=== PATIENT | female | born 2000 | race Asian ===

== ENCOUNTER 2023-11-18 19:47 | Inpatient (IN) ==
[2023-11-18] MEDS ORDERED: LIDOCAINE 1% LOCAL 20 ML VIAL INFIL PRN (20:41)
[2023-11-18] MEDS ORDERED: OXYTOCIN 30 UNITS/NSS 30 UNITS/500 ML BAG IV PRN ×2 (20:41)
[2023-11-18] MEDS ORDERED: PENICILLIN GK 6 MU in DEXTROSE 5% 250 ML IV STA (20:41)
--- NOTE | 2023-11-18 20:42 | Labor Progress Brief Note ---
Date of Service November 18, 2023 Subjective Patient presents for cruz bulb placement with planned IOL for tomorrow. 23yo @ 40w0d, complicated by GBS+ and low maternal weight gain but normal EFW. Rh negative also noted. Assessment & Plan (1) Supervision of normal IUP (intrauterine ) in multigravida: Plan: Begin IOL given ROM. Can use epidural prn, pitocin to begin now. PCN for GBS. Physical Exam Genitourinary: NSt reactive, toco irritable Cvx 2/50/-2/soft/ant During attempt to place cruz, AROM occurred for clear fluid. EFW 6-7lb Results & Data Vital Signs (Past 12 Hours) Vital Signs Temp Pulse Resp BP 11/18/23 20:26 97 H 138/83 11/18/23 20:09 98.2 F 18 11/18/23 20:03 18 11/18/23 20:03 98.2 F 18 11/18/23 20:00 129 H 134/85 Coding Level of Care Code None Diagnoses Supervision of normal IUP (intrauterine ) in multigravida Z34.80
[2023-11-18] MEDS: LACTATED RINGER'S 1,000 ML IV PRN (21:23)
[2023-11-18 21:44] LABS: Hemoglobin 11.5 g/dl (12.0-16.0); Mean Corpuscular Hemoglobin 30.9 pg (25.0-34.0); Mean Corpuscular Hgb Conc 34.8 g/dL (32.0-36.0); Mean Corpuscular Volume 88.7 fL (80.0-100.0); Mean Platelet Volume 11.8 fL (9.4-12.4); Platelet Count 174 K/uL (130-400); RDW Coefficient of Variation 12.8 % (11.5-14.5); RDW Standard Deviation 41.2 fL (36.4-46.3); Red Blood Count 3.72 M/uL (4.20-5.40)
[2023-11-19] MEDS: PENICILLIN GK 3 MU in DEXTROSE 5% 100 ML IV PRN ×3 (02:00→10:15)
[2023-11-19] MEDS ORDERED: fentaNYL citrate PF 100 MCG/2 ML VIAL ONE (05:09)
[2023-11-19] MEDS ORDERED: fentANYL 2 MCG/ML BUPIVacaine 0.125%-NSS 100ML BAG ONE (05:10)
[2023-11-19] MEDS ORDERED: BUPIVACAINE 0.25% PF 30 ML VIAL ONE (05:10)
[2023-11-19] MEDS ORDERED: SODIUM CHLORIDE 0.9% PF INJ 10 ML VIAL ONE (05:10)
[2023-11-19] MEDS ORDERED: LIDOCAINE 2%/EPINEPHRINE 1:200,000 20 ML PF ONE (05:10)
[2023-11-19] MEDS ORDERED: ePHEDrine sulfate 50 MG/ML AMP ONE (05:10)
[2023-11-19] MEDS ORDERED: diphenhydrAMINE 50 MG/ML VIAL IV PRN (05:23)
[2023-11-19] MEDS ORDERED: NALOXONE HCL 0.4 MG/1 ML VIAL/CARP IV PRN (05:23)
[2023-11-19] MEDS ORDERED: ePHEDrine sulfate 50 MG/ML AMP IV PRN (05:23)
[2023-11-19] MEDS ORDERED: ROPIVACAINE 0.5% PF 5 MG/ML 20 ML VIAL EPI PRN (05:23)
[2023-11-19] MEDS ORDERED: BUPIVACAINE 0.25% PF 30 ML VIAL EPI PRN (05:23)
[2023-11-19] MEDS ORDERED: LIDOCAINE 2% MPF LOCAL 5 ML VIAL EPI PRN (05:23)
[2023-11-19] MEDS ORDERED: fentaNYL citrate PF 100 MCG/2 ML VIAL EPI STA (05:23)
[2023-11-19] MEDS ORDERED: fentANYL 2 MCG/ML BUPIVacaine 0.125%-NSS 100ML BAG EPI PRN (05:23)
[2023-11-19] MEDS ORDERED: SODIUM CHLORIDE 0.9% PF INJ 10 ML VIAL EPI PRN (05:23)
[2023-11-19] MEDS ORDERED: LIDOCAINE 2%/EPINEPHRINE 1:200,000 20 ML PF EPI STA (05:23)
[2023-11-19] MEDS ORDERED: NALOXONE HCL 1 MG in SODIUM CHLORIDE 0.9% 1,000 ML IV PRN (05:23)
[2023-11-19] MEDS ORDERED: SODIUM CHLORIDE 0.9% PF INJ 10 ML VIAL EPI STA (05:23)
[2023-11-19] MEDS ORDERED: BUPIVACAINE 0.25% PF 30 ML VIAL EPI STA (05:23)
[2023-11-19] MEDS ORDERED: fentaNYL citrate PF 100 MCG/2 ML VIAL EPI PRN (05:23)
--- NOTE | 2023-11-19 05:28 | Anesthesiology Consultation ---
Date of Service November 19, 2023 Assessment & Plan (1) Encounter for pre-operative examination: Chart Review Chart Review: Patient NOT seen in Pre Admission Testing and Acceptable Risk for Labor Epidural Consults Requested none History Height/Weight Height: 5 ft 5 in Weight: 103.873 kg Allergies Allergy/AdvReac Type Severity Reaction Status Date / Time morphine Allergy Mild Anaphylaxis Verified 11/18/23 14:31 Medications Home Medications Medication Instructions Recorded Confirmed Last Taken vits 26-iron ps 29 mg 1 cap PO DAILY #30 caps 09/07/23 11/18/23 Unknown iron-folic acid 1 mg-dha 200 mg capsule (Vitafol-One) Active Medications Generic Name Dose Route Start Last Admin Trade Name Freq PRN Reason Stop Dose Admin Oxytocin 30 units in 500 mls @ 8 mls/hr 11/18/23 20:41 11/19/23 04:30 Pitocin 30 Units/Nss IV 11/20/23 20:40 0.48 units/hr .Q24H PRN 8 mls/hr Labor Induction/Augmentation Titration Protocol 0.48 UNITS/HR Lactated Ringer's 1,000 mls @ 125 mls/hr 11/18/23 20:41 11/19/23 05:42 Lr IV 11/20/23 20:40 999 mls/hr .Q8H PRN Administration L&D Protocol Protocol Penicillin G Potassium 3 mu/ 106 mls @ 100 mls/hr 11/18/23 23:42 11/19/23 02:00 Dextrose IV 11/28/23 23:41 100 mls/hr Q4H PRN Administration GBS(+) Until Delivery Past Medical History Medical History (Updated 11/19/23 @ 05:27 by Marcial Bobo MD) Encounter for pre-operative examination No known health problems Gestational diabetes Exercise / Class Metabolic Activity II 4-5 Yardwork/Stairs/Walk up hill Past Family History Family History Mother Hypertension Grandfather (Maternal) Diabetes Denies family history of Ovarian cancer Breast cancer Colorectal cancer Past Surgical History Surgical History S/P cholecystectomy Past Anesthesia History No Hx of Anesthesia Complications and No Family Hx of Anesthesia Complications Social History Smoking Status: Never smoker Do You Dip or Chew Tobacco: No Hx Alcohol Use: No Hx Substance Use: No substance use type: does not use Physical Exam Vital Signs Last Vital Signs Temp 36.5 C 11/19/23 05:30 Pulse 93 H 11/19/23 05:52 Resp 18 11/19/23 05:30 BP 118/70 11/19/23 05:52 Pulse Ox 97 11/19/23 05:52 Testing Laboratory Results 11/18/23 21:09
[2023-11-19] MEDS: LACTATED RINGER'S 1,000 ML IV PRN ×2 (05:42→09:12)
[2023-11-19] MEDS ORDERED: ONDANSETRON INJ 2 MG/ML 2 ML VIAL IV PRN (09:14)
[2023-11-19] MEDS ORDERED: ONDANSETRON INJ 2 MG/ML 2 ML VIAL ONE (09:15)
[2023-11-19] MEDS ORDERED: oxyCODONE/ACETAMINOPHEN 5mg/325mg TAB PO PRN (13:13)
[2023-11-19] MEDS ORDERED: HYDROCORTISONE ACETATE 25 MG SUPP PR PRN (13:13)
[2023-11-19] MEDS ORDERED: bisacodyL 10 MG SUPP PR PRN (13:13)
[2023-11-19] MEDS ORDERED: BENZOCAINE 20% SPRY 85 APPLN/85 GM CAN EXT PRN (13:13)
[2023-11-19] MEDS ORDERED: OXYTOCIN 30 UNITS/NSS 30 UNITS/500 ML BAG IV PRN (13:13)
[2023-11-19] MEDS ORDERED: DIPHTHERIA/TETANUS/PERTUSSIS Vaccine (Tdap, Age 7+yrs) 0.5mL SYR/VL IM ONE (13:13)
--- NOTE | 2023-11-19 13:22 | Delivery Summary ---
Vaginal Delivery Summary Date of Service November 19, 2023 Vaginal Delivery Summary and 1st Degree LAC Patient is a 23-year-old 2 para 1-0-0-1 female EDC of 11/18/2023 who presents for induction of labor. A cervical balloon was attempted last evening and spontaneous rupture of membranes occurred at that time. She was started on Pitocin for induction of labor. She received effective epidural analgesia. She progressed to full dilation and pushed effectively over intact perineum for delivery of a viable male infant. After the head was delivered the shoulders were delivered without maternal effort. The was vigorous and crying and while moving all 4 limbs. The was placed on the mother's abdomen for further attention and drying. Cord was clamped and cut after 1 minute. After cord blood was obtained, the placenta was expressed intact with a three-vessel cord. A first-degree perineal laceration was repaired with 3-0 chromic in usual fashion. Her bladder was emptied using sterile technique for approximately 50 cc of urine after delivery. Estimate blood loss 200 cc. Mother and infant doing well after delivery. [facility] Vaginal Delivery Charge Delivery Type Details: and 1st Degree LAC
--- NOTE | 2023-11-19 14:57 | Anesthesia Procedure Note ---
Date of Service November 19, 2023 Anesthesia Post Epidural Note Vital Signs Vital Signs: Temp Pulse Resp BP Pulse Ox O2 Del Method 36.8 C 104 H 20 98/56 L 95 Room Air 11/19/23 11:58 11/19/23 14:50 11/19/23 13:45 11/19/23 14:50 11/19/23 12:52 11/19/23 07:28 Notes Mental Status: alert / awake / arousable and participated in evaluation Nausea / Vomiting: adequately controlled Pain: adequately controlled Airway Patency, RR, SpO2: stable & adequate BP & HR: stable & adequate Hydration State: stable & adequate Neuraxial Anesthesia: was administered and sensory block is resolving Anesthetic Complications: no major complications apparent Epidural: Removed without complications and With tip intact
[2023-11-19] MEDS: IBUPROFEN 600 MG TAB PO PRN ×2 (18:02→23:57)
[2023-11-19] MEDS: ACETAMINOPHEN 325 MG TAB PO PRN (21:24)
[2023-11-19] MEDS: DOCUSATE SODIUM 100 MG CAP PO SCH (21:24)
[2023-11-20 06:27] LABS: Hematocrit (blood only) 30.6 % (37.0-47.0); Hemoglobin 10.3 g/dl (12.0-16.0); Mean Corpuscular Hemoglobin 30.9 pg (25.0-34.0); Mean Corpuscular Hgb Conc 33.7 g/dL (32.0-36.0); Mean Corpuscular Volume 91.9 fL (80.0-100.0); Mean Platelet Volume 11.3 fL (9.4-12.4); Platelet Count 149 K/uL (130-400); RDW Coefficient of Variation 12.8 % (11.5-14.5); Red Blood Count 3.33 M/uL (4.20-5.40); White Blood Count 10.26 K/ul (4.8-10.8)
--- NOTE | 2023-11-20 07:44 | Obstetrical Progress Note ---
Date of Service November 20, 2023 Assessment & Plan (1) Encounter for care and examination after delivery: satisfactory course continue current care plan Day #:: 1 Subjective Ambulation: ambulating normally Voiding: no voiding problems Passing Gas:: Yes Diet Tolerance:: regular diet Lochia:: Moderate Feeding Type:: breast feeding requesting stool softener this morning otherwise feels well Review of Systems All systems reviewed & are unremarkable except as noted in HPI & below Physical Exam Constitutional WD/WN, vitals as above Psychiatric A+Ox3, euthymic affect Genitourinary OB Exam Abdomen: + fundal height Fundus: + firm and + relation to umbilicus (1 below U) Results & Data Vital Signs (Past 12 Hours) Vital Signs Temp Pulse Pulse Resp BP Pulse Ox O2 Del Method 11/20/23 03:04 97.7 F 88 18 105/67 99 Room Air 11/19/23 23:54 97.9 F 85 16 105/65 98 Room Air 11/19/23 20:00 98.2 F 86 20 104/69 99 Room Air
[2023-11-20] MEDS ORDERED: MAGNESIUM HYDROXIDE SUSP 30 ML UDC PO PRN (07:45)
[2023-11-20] MEDS: PRENATAL VITAMIN 1 TAB PO SCH (08:07)
[2023-11-20] MEDS ORDERED: DOCUSATE SODIUM 100 MG CAP PO SCH (09:00)
[2023-11-20] MEDS: DOCUSATE SODIUM SYRUP 100 MG/10 ML UDC PO SCH ×2 (09:37→20:53)
[2023-11-20] MEDS: ACETAMINOPHEN 325 MG TAB PO PRN (11:55)
[2023-11-20] MEDS: IBUPROFEN 600 MG TAB PO PRN (16:11)
[2023-11-20] MEDS ORDERED: bisacodyL 5 MG TABEC PO SCH (20:00)
[2023-11-20] MEDS: DOCUSATE SODIUM 100 MG CAP PO SCH (20:53)
[2023-11-21 07:42] LABS: Hematocrit (blood only) 30.1 % (37.0-47.0); Hemoglobin 10.3 g/dl (12.0-16.0)
--- NOTE | 2023-11-21 08:54 | Obstetrical Progress Note ---
Date of Service November 21, 2023 Assessment & Plan (1) Encounter for care and examination after delivery: Day 2 status post vaginal delivery. Patient doing well. Stable for discharge. Subjective Ambulation: ambulating normally Voiding: no voiding problems Passing Gas:: Yes Diet Tolerance:: regular diet Lochia:: Moderate Feeding Type:: breast feeding Review of Systems Denies calf tenderness Physical Exam Exam deferred Results & Data Vital Signs (Past 12 Hours) Vital Signs Temp Pulse Resp BP Pulse Ox O2 Del Method 11/21/23 07:25 37 C 91 H 20 116/76 98 Room Air 11/20/23 23:03 36.6 C 99 H 18 114/73 99 Room Air
[2023-11-21] MEDS: PRENATAL VITAMIN 1 TAB PO SCH (08:58)
[2023-11-21] MEDS: IBUPROFEN 600 MG TAB PO PRN (08:59)
[2023-11-21] MEDS: DOCUSATE SODIUM SYRUP 100 MG/10 ML UDC PO SCH (08:59)
== END 2023-11-21 11:05 | disposition home or self-care (01) | DRG 807 ==
LOC: OPB 19:47 → 4S1 19:48 → 4E2 11-19 16:49
DX: Z3A.40 40 weeks gestation of pregnancy; Z88.5 Allergy status to narcotic agent; O70.0 First degree perineal laceration during delivery; O99.824 Streptococcus B carrier state complicating childbirth; O26.13 Low weight gain in pregnancy, third trimester; Z67.91 Unspecified blood type, Rh negative; Z37.0 Single live birth

== ENCOUNTER 2025-09-01 17:49 | Inpatient (IN) ==
[2025-09-01] MEDS ORDERED: OXYTOCIN 30 UNITS/NSS 30 UNITS/500 ML BAG IV PRN (18:55)
[2025-09-01] MEDS ORDERED: LIDOCAINE 1% LOCAL 20 ML VIAL INFIL PRN (18:55)
[2025-09-01] MEDS ORDERED: SODIUM CHLORIDE 0.9% 1,000 ML IV PRN (19:00)
[2025-09-01] MEDS ORDERED: DEXTROSE 50% 50 ML SYRINGE IV PRN (19:00)
[2025-09-01] MEDS: DOCUSATE SODIUM 100 MG CAP PO ONE (19:23)
[2025-09-01] MEDS: OXYTOCIN 30 UNITS/NSS 30 UNITS/500 ML BAG IV PRN (19:37)
[2025-09-01] MEDS: LACTATED RINGER'S 1,000 ML IV PRN (19:37)
[2025-09-01] MEDS: INSULIN REGULAR 250 UNITS in SODIUM CHLORIDE 0.9% 247.5 ML IV PRN (19:38)
--- NOTE | 2025-09-01 19:57 | Labor Progress Brief Note ---
Date of Service September 01, 2025 Subjective 25yo with IUP @ 39w1d for IOL. Patient is noncompliant GDM who was recommended to use but did not accept insulin; Rh neg; missed several visits at 36 week timeframe and therefore has not had GBS culture collected prior to today; was scheduled for IOL this morning but declined to present until late in the day today. 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 This fetus had a normal anatomy scan. There was concern for IUGR in this with EFW 2% at 20wk and 3% at 24wk. An MFM consultation was sought and they felt the issue was her EDC. The EDC had been established by LMP c/w 2nd tri US; patient did not present for care as scheduled in 1st tri and had irregular menses prior to , making dating a challenge. Once EDC was adjusted per MFM recommendations, further EFW measurements were 24%, 37%, 76%. The AC was 30%, 68%, 95%. Her pelvis is proven to 8lb2oz which was her in 2022. On arrival, no OB c/o. Good FM, no ROM, no VB, no Ctx. Assessment & Plan (1) Gestational diabetes mellitus (GDM) affecting , antepartum: Plan: Insulin/Glucose IV protocol started to tighten glucose and insulin control prior to separation of fetus and mother at . Initial BG 130. FHT reassuring at this time Pitocin for induction, AROM when able, patient plans epidural. GBS swab collected and sent upon admission. No abx as the patient is GBS unknown but is at term. Admission and Anticipated Discharge Date Admission Date: September 01, 2025 Physical Exam Genitourinary: 2/50/-2 FHT Cat 1 [place] quiet Results & Data Vital Signs (Past 12 Hours) Vital Signs Temp Pulse Resp BP 09/01/25 19:43 93 H 09/01/25 19:43 118/68 09/01/25 18:06 98.6 F 96 H 18 123/74 09/01/25 18:00 98.6 F 96 H 18 123/74 Laboratory Results Vital Signs Temp Pulse Resp BP 09/01/25 19:43 93 H 09/01/25 19:43 118/68 09/01/25 18:06 98.6 F 96 H 18 123/74 09/01/25 18:00 98.6 F 96 H 18 [id number] Intake and Output 09/01/25 09/01/25 09/01/25 06:59 14:59 22:59 Other: Weight 209 lb 10.3 oz Weight Measurement Method Last Office Visit Patient Weight 09/02/25 06:59 Weight 209 lb 10.3 oz Laboratory Results - last 24 hr 09/01/25 09/01/25 18:02 19:25 POC Glucose 128 H 130 H Coding Level of Care Code None Diagnoses Gestational diabetes mellitus (GDM) affecting , antepartum O24.419
[2025-09-01] MEDS: DEXTROSE 5% 1,000 ML IV PRN (19:58)
[2025-09-01] MEDS ORDERED: INSULIN REGULAR 250 UNITS in SODIUM CHLORIDE 0.9% 247.5 ML IV PRN (20:30)
[2025-09-01 21:08] LABS: Hematocrit (blood only) 35.0 % (37.0-47.0); Hemoglobin 12.8 g/dl (12.0-16.0); Mean Corpuscular Hemoglobin 32.0 pg (25.0-34.0); Mean Corpuscular Volume 87.5 fL (80.0-100.0); Platelet Count 179 K/uL (130-400); RDW Standard Deviation 41.8 fL (36.4-46.3); Red Blood Count 4.00 M/uL (4.20-5.40); White Blood Count 6.87 K/ul (4.8-10.8)
[2025-09-02] MEDS: LIDOCAINE 2%/EPINEPHRINE 1:200,000 20 ML PF ONE (00:33)
[2025-09-02] MEDS: fentANYL 2 MCG/ML BUPIVacaine 0.125%-NSS 100ML BAG ONE (00:42)
--- NOTE | 2025-09-02 00:44 | Anesthesiology Consultation ---
Date of Service September 02, 2025 Assessment & Plan Chart Review Chart Review: Acceptable Risk for Labor Epidural Consults Requested none History Height/Weight Height: 5 ft 5 in Weight: 95.093 kg Allergies Allergy/AdvReac Type Severity Reaction Status Date / Time morphine Allergy Mild Anaphylaxis Verified 09/01/25 18:05 Medications Home Medications Medication Instructions Recorded Confirmed Last Taken No Known Home Medications 08/31/25 08/31/25 Unknown Active Medications Generic Name Dose Route Start Last Admin Trade Name Freq PRN Reason Stop Dose Admin Lactated Ringer's 1,000 mls @ 125 mls/hr 09/01/25 18:55 09/02/25 00:11 Lr IV 09/03/25 18:54 125 mls/hr .Q8H PRN Administration L&D Protocol Protocol Oxytocin 30 units in 500 mls @ 14 mls/hr 09/01/25 19:00 09/01/25 23:49 Pitocin 30 Units/Nss IV 09/03/25 18:59 0.84 units/hr .Q24H PRN 14 mls/hr Labor Induction/Augmentation Titration Protocol 0.84 UNITS/HR Dextrose 1,000 mls @ 100 mls/hr 09/01/25 19:00 09/01/25 23:49 D5w IV 09/04/25 18:59 100 mls/hr .Q10H PRN Infusion BSG 180 or below Protocol Insulin Human Regular 250 250 mls @ 0 mls/hr 09/01/25 19:00 09/01/25 23:49 units/ Sodium Chloride IV 10/01/25 18:59 0 units/hr .Q0M PRN 0 mls/hr BSG 80mg/dL or ABOVE Titration Protocol Per Protocol Past Medical History Medical History History of prior with IUGR Diarrhea following gastrointestinal surgery Tinnitus FH: thyroid condition Hyperglycemia Cerumen debris on tympanic membrane of both ears Hair loss SOB (shortness of breath) Swelling of extremity Gestational diabetes Past Family History Family History Mother Hypertension Grandfather (Maternal) Diabetes Family/Other Thyroid disease Denies family history of Ovarian cancer Breast cancer Colorectal cancer Past Surgical History Surgical History S/P cholecystectomy Social History Smoking Status: Never smoker Do You Dip or Chew Tobacco: No Hx Alcohol Use: No Hx Substance Use: No substance use type: does not use Physical Exam Vital Signs Last Vital Signs Temp 36.6 C 09/01/25 21:42 Pulse 92 H 09/02/25 00:42 Resp 18 09/01/25 18:06 BP 108/55 L 09/02/25 00:42 Pulse Ox 98 09/02/25 00:38 Testing Laboratory Results 09/01/25 20:25 09/01/25 09/01/25 09/01/25 23:48 22:32 21:29 POC Glucose 73 97 78 09/01/25 09/01/25 09/01/25 20:19 19:25 18:02 POC Glucose 107 H 130 H 128 H
[2025-09-02] MEDS ORDERED: NALOXONE HCL 1 MG in SODIUM CHLORIDE 0.9% 1,000 ML IV PRN (00:45)
[2025-09-02] MEDS ORDERED: SODIUM CHLORIDE 0.9% PF INJ 10 ML VIAL EPI PRN (00:45)
[2025-09-02] MEDS ORDERED: NALBUPHINE HCL INJ 10 MG/ML AMP IV PRN (00:45)
[2025-09-02] MEDS ORDERED: BUPIVACAINE 0.25% PF 30 ML VIAL EPI STA (00:45)
[2025-09-02] MEDS ORDERED: LIDOCAINE 2%/EPINEPHRINE 1:200,000 20 ML PF EPI STA (00:45)
[2025-09-02] MEDS ORDERED: NALOXONE HCL 0.4 MG/1 ML VIAL/CARP IV PRN (00:45)
[2025-09-02] MEDS ORDERED: ROPIVACAINE 0.5% PF 5 MG/ML 20 ML VIAL EPI PRN (00:45)
[2025-09-02] MEDS ORDERED: fentANYL 2 MCG/ML BUPIVacaine 0.125%-NSS 100ML BAG EPI PRN (00:45)
[2025-09-02] MEDS ORDERED: LIDOCAINE 2% MPF LOCAL 5 ML VIAL EPI PRN (00:45)
[2025-09-02] MEDS ORDERED: diphenhydrAMINE 50 MG/ML VIAL IV PRN (00:45)
[2025-09-02] MEDS ORDERED: SODIUM CHLORIDE 0.9% PF INJ 10 ML VIAL EPI STA (00:45)
[2025-09-02] MEDS ORDERED: BUPIVACAINE 0.25% PF 30 ML VIAL EPI PRN (00:45)
[2025-09-02] MEDS: ONDANSETRON INJ 2 MG/ML 2 ML VIAL IV PRN (01:25)
[2025-09-02] MEDS: SODIUM CHLORIDE 0.9% PF INJ 10 ML VIAL ONE (05:41)
[2025-09-02] MEDS: BUPIVACAINE 0.25% PF 30 ML VIAL ONE (05:42)
--- NOTE | 2025-09-02 07:09 | Delivery Summary ---
Vaginal Delivery Summary Date of Service September 02, 2025 Vaginal Delivery Summary DIAGNOSES: 1. Andersen intrauterine at 39w2d gestation. 2. Induction of Labor, for noncompliant GDM. 3. Group B Streptococcus Unknown. PROCEDURE: Spontaneous vaginal delivery and repair of second degree laceration. SURGEON: Carin London MD. SECURITY TECH: None. ESTIMATED BLOOD LOSS: 103 mL. COMPLICATIONS: None. PLACENTA: Spontaneous and intact with a 3-vessel cord. DISPOSITION: Stable to labor and delivery. DESCRIPTION: The patient pushed well and brought the head to in OA position. The infant's head was allowed to deliver with contraction force and no further active pushing, with the perineum protected during this time. There was no nuchal cord. The right shoulder was anterior. The shoulders and body delivered without any difficulty, and the infant was placed on the maternal abdomen. It was vigorous and moving all extremities, and making respiratory efforts. The cord was doubly clamped by the MD and then cut by the FOB. The placenta delivered spontaneously and was noted to be intact and with a 3VC. The cervix, vagina and perineum were examined and were found to be without laceration. The fundus was firm and lochia minimal immediately after delivery. [facility] Vaginal Delivery Charge Vaginal Delivery Codes: 47975 global code for the antepartum, delivery, and post-
--- NOTE | 2025-09-02 07:22 | Anesthesia Procedure Note ---
Date of Service September 02, 2025 Anesthesia Post Epidural Note Vital Signs Vital Signs: Temp Pulse Resp BP Pulse Ox 36.9 C 90 16 117/55 L 96 09/02/25 04:17 09/02/25 07:20 09/02/25 04:17 09/02/25 07:20 09/02/25 07:03 Notes Mental Status: alert / awake / arousable and participated in evaluation Nausea / Vomiting: adequately controlled Pain: adequately controlled Airway Patency, RR, SpO2: stable & adequate BP & HR: stable & adequate Hydration State: stable & adequate Neuraxial Anesthesia: was administered and sensory block is resolving Anesthetic Complications: no major complications apparent and Pt Satisfied with anesthetic care Epidural: Removed without complications and With tip intact
[2025-09-02] MEDS ORDERED: BENZOCAINE 20% SPRY 85 APPLN/85 GM CAN EXT PRN (07:27)
[2025-09-02] MEDS ORDERED: DIPHTHER/TETAN/PERTUS Vaccine (Tdap, Adol/Adult) 0.5mL IM ONE (07:27)
[2025-09-02] MEDS ORDERED: HYDROCORTISONE ACETATE 25 MG SUPP PR PRN (07:27)
[2025-09-02] MEDS: OXYTOCIN 30 UNITS/NSS 30 UNITS/500 ML BAG IV PRN (07:37)
[2025-09-02] MEDS: PRENATAL VITAMIN 1 TAB PO SCH (08:41)
[2025-09-02] MEDS: DOCUSATE SODIUM 100 MG CAP PO SCH (08:41)
[2025-09-02] MEDS: IBUPROFEN 600 MG TAB PO PRN (16:38)
[2025-09-02] MEDS: ACETAMINOPHEN 325 MG TAB PO PRN (19:42)
[2025-09-03 07:45] LABS: Hematocrit (blood only) 29.2 % (37.0-47.0); Hemoglobin 9.9 g/dl (12.0-16.0); Mean Corpuscular Hemoglobin 30.7 pg (25.0-34.0); Mean Corpuscular Volume 90.7 fL (80.0-100.0); Platelet Count 122 K/uL (130-400); RDW Standard Deviation 43.3 fL (36.4-46.3); Red Blood Count 3.22 M/uL (4.20-5.40); White Blood Count 8.27 K/ul (4.8-10.8)
[2025-09-03 08:59] VITALS: BP 103/66; PULSE 76; RESP 14; TEMP 98.1; O2SAT 98
--- NOTE | 2025-09-03 09:10 | Obstetrical Progress Note ---
Date of Service September 03, 2025 Assessment & Plan (1) Encounter for assessment: Plan Doing well. Meeting d/c criteria. Plan d/c later today after circ. Instructions reviewed. f/u 6 weeks/prn Day #:: 1 Subjective Ambulation: ambulating normally Voiding: no voiding problems Passing Gas:: Yes Diet Tolerance:: regular diet Lochia:: Small Feeding Type:: breast feeding Notes lots of cramping. Helped with ibuprofen. Physical Exam Constitutional WD/WN, vitals as above Respiratory normal respiratory effort, lungs clear to auscultation Cardiovascular RRR, no murmur, no edema Extremities: no calf tenderness and no edema Gastrointestinal (Abdomen) soft, nt, ff/nt 1 below u Psychiatric A+Ox3, euthymic affect Results & Data Vital Signs (Past 12 Hours) Vital Signs Temp Pulse Resp BP Pulse Ox O2 Del Method 09/03/25 07:50 36.7 C 76 14 103/66 98 Room Air 09/03/25 00:04 36.5 C 89 18 96/63 L 99 Room Air
--- NOTE | 2025-09-05 11:25 | Coding Query ---
CODING QUERY To promote full compliance with coding requirements relating to patient care, provider participation is requested in all cases of clinical account liaison uncertainty. Please assist us with the question(s) below: Coding Question(s): Laboratory findings indicate positive Group B. Do you agree with these findings? Physician's Response(s): I'm unsure why this is a coding query. Her Group B swab was collected at the time she presented for induction and was not available as a result until after delivery. But of course I do not dispute the laboratory finding above. Does that answer the question you were asking or do you need something further? Thank you Tori DAUGHERTY
== END 2025-09-03 15:16 | disposition home or self-care (01) | DRG 807 ==
LOC: 4S1 17:49 → 4E2 09-02 12:30